=== PATIENT | male | born 1990 | race Caucasian/White ===

== ENCOUNTER → 2016-11-10 | Outpatient (REF) | LOC: WSOH 14:16 | DX: Z02.4 Encounter for examination for driving license (principal) ==

== ENCOUNTER 2017-08-07 20:48 | Emergency (ER) | payer SELFPAY ==
[~2017-08-07] VITALS: Ht 172.7 cm; Wt 70.5 kg
[2017-08-07 20:54] VITALS: BP 120/71; PULSE 61; TEMP 99.1
== END 2017-08-07 22:10 | disposition home or self-care (01) ==
LOC: COL.ER 20:48
DX: S63.501A Unspecified sprain of right wrist, initial encounter (principal); S60.211A Contusion of right wrist, initial encounter; W23.1XXA Caught, crushed, jammed, or pinched between stationary objects, initial encounter; Y99.0 Civilian activity done for income or pay

== ENCOUNTER 2017-08-14 15:18 | Outpatient (RCR) | payer OTHER | END 2017-09-14 13:48 | LOC: WSOH 15:18 | DX: S50.11XA Contusion of right forearm, initial encounter (principal); W23.0XXA Caught, crushed, jammed, or pinched between moving objects, initial encounter; Y99.0 Civilian activity done for income or pay ==